=== PATIENT | male | born 1960 | race Caucasian/White ===

== ENCOUNTER 2019-06-16 18:15 | Emergency (ER) | payer OTHER, SELFPAY ==
[2019-06-16] MEDS ORDERED: Lidocaine 1% 20 ML MDV ONE (18:30)
[2019-06-16] MEDS ORDERED: Adacel (T-DAP) 0.5 ML SYRINGE ONE (18:39)
[2019-06-16] MEDS ORDERED: Bacitracin 1 PK ONE (18:56)
[2019-06-16] MEDS ORDERED: Cephalexin 500 MG CAP ONE (19:03)
== END 2019-06-16 19:15 | disposition home or self-care (01) ==
LOC: MADERS 18:15
DX: S61.211A Laceration without foreign body of left index finger without damage to nail, initial encounter (principal); Z23 Encounter for immunization; X58.XXXA Exposure to other specified factors, initial encounter
CPT/HCPCS: 12001; 90471; 90715; J2001

== ENCOUNTER 2021-02-09 19:11 | Emergency (ER) | payer BC, SELFPAY ==
[2021-02-09] MEDS ORDERED: Morphine 4 MG/ML VIAL ONE (19:20)
[2021-02-09] MEDS ORDERED: Ondansetron PF 4 MG/2 ML Vial ONE (19:20)
[2021-02-09] MEDS ORDERED: Boostrix 0.5 ML (Tdap) VIAL ONE (19:40)
[2021-02-09] MEDS ORDERED: Sodium Chloride 0.9% 500 ML ONE (19:40)
[2021-02-09 19:42] LABS: #Basophils 0.2 thou/uL (0.0-0.2); #Eosinphils 0.3 thou/uL (0.0-0.7); #Lymphocytes 4.7 thou/uL (1.20-3.40); #Neutrophils 4.4 thou/uL (1.40-6.50); %Basophils 1.5 % (0.0-1.0); %Eosinophils 2.8 % (0.0-10.0); %Monocytes 9.1 % (0.0-10.0); %Neutrophils 41.6 % (42.0-75.0); Hemoglobin 12.2 g/dL (14.0-18.0); MDiff Complete? YES; Macrocytosis SLIGHT = 6-15 cells (100X) (0-5/hpf); Mean Corpuscular HGB CONC 31.1 g/dL (32.0-36.0); Mean Corpuscular Hemoglobin 33.4 pg (27.0-31.0); Mean Corpuscular Volume 107.3 fL (78.0-98.0); Platelet Count 280 thou/uL (130-400); Platelet Morphology Comment Appears Adequate; Red Blood Cell (RBC) Count 3.65 mill/uL (4.70-6.10); Stomatocytes SLIGHT = 2-5 cells (100X) (0-1/hpf); White Blood Cell (WBC) Count 10.5 thou/uL (4.8-10.8)
[2021-02-09 19:44] LABS: ALT (SGPT) 141 U/L (8-55); AST (SGOT) 158 U/L (5-34); Albumin 4.4 g/dL (3.5-5.0); Alkaline Phosphatase 94 U/L (40-110); Anion Gap 22 mmol/L (10-20); BUN (Urea Nitrogen) 21 mg/dL (8.4-25.7); Bilirubin, Total 0.7 mg/dL (0.2-1.2); Calc. Creatinine Clearance 0 mL/min (70-130); Calcium 9.4 mg/dL (7.8-10.44); Carbon Dioxide 17 mmol/L (22-29); Chloride 102 mmol/L (98-107); Globulin 3.3 g/dL (2.4-3.5); Glucose 127 mg/dL (70-105); Potassium 4.4 mmol/L (3.5-5.1); Protein, Total 7.7 g/dL (6.0-8.3); Sodium 137 mmol/L (136-145)
[2021-02-09] MEDS ORDERED: Bupivacaine PF 0.5% 30 ML VIAL ONE ×2 (19:59→20:00)
[2021-02-09] MEDS ORDERED: Lidocaine 1% 20 ML MDV ONE (19:59)
[2021-02-09] MEDS ORDERED: CEFAZOLIN 1 GM VIAL ONE (20:19)
[2021-02-09] MEDS ORDERED: Sodium Chloride 0.9% 100 ML ONE (20:20)
[2021-02-09] MEDS ORDERED: Bacitracin 1 PK ONE (21:33)
[2021-02-10 13:42] LABS: SARS-CoV-2 PCR by NAA Not Detected (NotDetected)
== END 2021-02-09 22:05 | disposition home or self-care (01) ==
LOC: MADERS 19:11
DX: S68.123A Partial traumatic metacarpophalangeal amputation of left middle finger, initial encounter (principal); K21.9 Gastro-esophageal reflux disease without esophagitis; I11.0 Hypertensive heart disease with heart failure; I50.9 Heart failure, unspecified; Z20.822 Contact with and (suspected) exposure to COVID-19; E78.5 Hyperlipidemia, unspecified; Z79.899 Other long term (current) drug therapy; W27.0XXA Contact with workbench tool, initial encounter
CPT/HCPCS: 12002; 80053; 85025; 87635; 90471; 90715; 96365; 96372; 96375; J0690; J2270; J2405; J3490; J7030; S0020; U0003; U0005

== ENCOUNTER 2021-03-11 08:34 | Emergency (ER) | payer BC ==
[2021-03-11] MEDS ORDERED: Ketorolac Tromethamine 30 MG/ML VIAL ONE (09:13)
[2021-03-11] MEDS ORDERED: Thiamine HCl 200 MG/2 ML VIAL ONE (09:13)
[2021-03-11] MEDS ORDERED: Metoclopramide HCl 10 MG/2 ML VIAL ONE (09:13)
[2021-03-11] MEDS ORDERED: Sodium Chloride 0.9% 100 ML ONE (09:13)
[2021-03-11] MEDS ORDERED: Dextrose 5 %-0.45 % NaCl 1,000 ML ONE (09:13)
[2021-03-11] MEDS ORDERED: diphenhydrAMINE 50 MG/ML VIAL ONE (09:13)
[2021-03-11] MEDS ORDERED: Multivit, Adult Inj 10 ML VIAL ONE (09:13)
[2021-03-11] MEDS ORDERED: Metoclopramide HCl 10 MG/2 ML VIAL IVP SCH (09:15)
[2021-03-11] MEDS ORDERED: Thiamine HCl 200 MG/2 ML VIAL SLOW IVP SCH (09:15)
[2021-03-11] MEDS ORDERED: Folic Acid 1 MG, Multivitamins, Adult 10 ML in Dextrose 5 %-0.45 % NaCl 1,000 ML IV SCH (09:15)
[2021-03-11] MEDS ORDERED: Ketorolac Tromethamine 30 MG/ML VIAL IVP SCH (09:15)
[2021-03-11] MEDS ORDERED: diphenhydrAMINE 50 MG/ML VIAL IVP SCH (09:15)
[2021-03-11 10:29] LABS: ALT (SGPT) 71 U/L (8-55); AST (SGOT) 84 U/L (5-34); Albumin 4.1 g/dL (3.5-5.0); Alkaline Phosphatase 86 U/L (40-110); Anion Gap 21 mmol/L (10-20); BUN (Urea Nitrogen) 6 mg/dL (8.4-25.7); Bilirubin, Total 1.2 mg/dL (0.2-1.2); CK (CPK) 107 U/L (30-200); Calc. Creatinine Clearance 0 mL/min (70-130); Calcium 8.8 mg/dL (7.8-10.44); Carbon Dioxide 19 mmol/L (22-29); Chloride 103 mmol/L (98-107); Glucose 123 mg/dL (70-105); Lipase 37 U/L (8-78); Potassium 3.6 mmol/L (3.5-5.1); Protein, Total 7.1 g/dL (6.0-8.3); Sodium 139 mmol/L (136-145)
[2021-03-11 10:33] LABS: CKMB 1.7 ng/mL (0-6.6)
[2021-03-11 10:37] LABS: #Basophils 0.1 thou/uL (0.0-0.2); #Eosinphils 0.1 thou/uL (0.0-0.7); #Lymphocytes 2.5 thou/uL (1.20-3.40); #Monocytes 0.6 thou/uL (0.11-0.59); #Neutrophils 4.3 thou/uL (1.40-6.50); %Basophils 1.6 % (0.0-1.0); %Eosinophils 1.7 % (0.0-10.0); %Lymphocytes 33.3 % (21.0-51.0); %Monocytes 7.7 % (0.0-10.0); %Neutrophils 55.8 % (42.0-75.0); Hemoglobin 12.3 g/dL (14.0-18.0); MDiff Complete? YES; Macrocytosis SLIGHT = 6-15 cells (100X) (0-5/hpf); Mean Corpuscular HGB CONC 30.8 g/dL (32.0-36.0); Mean Corpuscular Hemoglobin 33.9 pg (27.0-31.0); Mean Corpuscular Volume 110.2 fL (78.0-98.0); Mean Platelet Volume 7.3 fL (7.4-10.4); Platelet Count 291 thou/uL (130-400); RBC Distribution Width 16.7 % (11.5-14.5); Red Blood Cell (RBC) Count 3.61 mill/uL (4.70-6.10); White Blood Cell (WBC) Count 7.6 thou/uL (4.8-10.8)
[2021-03-11] MEDS ORDERED: Aspirin Chewable 81 MG TAB ONE (10:53)
== END 2021-03-11 14:43 | disposition short-term general hospital (02) ==
LOC: MADERS 08:34
DX: I16.0 Hypertensive urgency (principal); R11.2 Nausea with vomiting, unspecified; K21.9 Gastro-esophageal reflux disease without esophagitis; E78.5 Hyperlipidemia, unspecified; I10 Essential (primary) hypertension; F17.210 Nicotine dependence, cigarettes, uncomplicated; Z79.899 Other long term (current) drug therapy
CPT/HCPCS: 36415; 71045; 80053; 82550; 82553; 83605; 83690; 84484; 85025; 93005; 96365; 96367; 96375; J1200; J1885; J2765; J3411; J3490; J7042

== ENCOUNTER 2021-10-03 08:21 | Emergency (ER) | payer BC ==
[2021-10-03] MEDS ORDERED: Lorazepam 2 MG/ML VIAL ONE ×2 (08:55→15:58)
[2021-10-03 09:01] LABS: #Basophils 0.2 thou/uL (0.0-0.2); #Eosinphils 0.1 thou/uL (0.0-0.7); #Lymphocytes 2.6 thou/uL (1.20-3.40); #Monocytes 0.9 thou/uL (0.11-0.59); #Neutrophils 3.7 thou/uL (1.40-6.50); %Basophils 2.2 % (0.0-1.0); %Lymphocytes 34.4 % (21.0-51.0); %Monocytes 11.8 % (0.0-10.0); %Neutrophils 49.6 % (42.0-75.0); Hemoglobin 14.9 g/dL (14.0-18.0); Mean Corpuscular HGB CONC 31.1 g/dL (32.0-36.0); Mean Corpuscular Hemoglobin 30.3 pg (27.0-31.0); Mean Corpuscular Volume 97.5 fL (78.0-98.0); Mean Platelet Volume 7.2 fL (7.4-10.4); Platelet Count 253 thou/uL (130-400); RBC Distribution Width 16.9 % (11.5-14.5); White Blood Cell (WBC) Count 7.4 thou/uL (4.8-10.8)
[2021-10-03 09:16] LABS: ALT (SGPT) 140 U/L (8-55); AST (SGOT) 153 U/L (5-34); Albumin 4.6 g/dL (3.5-5.0); Alkaline Phosphatase 84 U/L (40-110); Anion Gap 14 mmol/L (10-20); BUN (Urea Nitrogen) 7 mg/dL (8.4-25.7); Bilirubin, Total 1.9 mg/dL (0.2-1.2); Calc. Creatinine Clearance 0 mL/min (70-130); Carbon Dioxide 27 mmol/L (22-29); Chloride 100 mmol/L (98-107); Globulin 3.6 g/dL (2.4-3.5); Glucose 117 mg/dL (70-105); Potassium 3.5 mmol/L (3.5-5.1); Protein, Total 8.2 g/dL (6.0-8.3); Sodium 137 mmol/L (136-145)
[2021-10-03] MEDS ORDERED: Metoprolol Tartrate 50 MG TAB ONE ×2 (11:02→15:40)
[2021-10-03] MEDS ORDERED: cloNIDine 0.1mg/24 Hour PATCH ONE (14:08)
[2021-10-03] MEDS ORDERED: cloNIDine 0.1 MG TAB ONE (14:09)
[2021-10-03 14:29] LABS: Acetaminophen Less than 6.0 mcg/mL (10.0-30.0); Alcohol 119 mg/dL (Less than 10); Salicylate Less than 8.0 mg/dL (15.0-30.0)
[2021-10-03] MEDS ORDERED: Multivit, Adult Inj 10 ML VIAL ONE (15:49)
[2021-10-03] MEDS ORDERED: Dextrose 5 %-0.45 % NaCl 1,000 ML ONE (15:49)
[2021-10-03] MEDS ORDERED: Thiamine HCl 200 MG/2 ML VIAL ONE (15:49)
== END 2021-10-03 20:33 | disposition short-term general hospital (02) ==
LOC: MADERS 08:21
DX: I11.0 Hypertensive heart disease with heart failure (principal); I50.9 Heart failure, unspecified; F10.239 Alcohol dependence with withdrawal, unspecified; K21.9 Gastro-esophageal reflux disease without esophagitis; E78.5 Hyperlipidemia, unspecified; F17.210 Nicotine dependence, cigarettes, uncomplicated; Y90.5 Blood alcohol level of 100-119 mg/100 ml; Z79.899 Other long term (current) drug therapy
CPT/HCPCS: 36415; 71045; 80053; 80307; 83880; 84484; 85025; 93005; 96374; 96375; 96376; J2060; J3411; J7042